=== PATIENT | female | born 1980 | race Caucasian/White ===

== ENCOUNTER 2016-11-19 21:02 | Emergency (ER) | payer BC ==
[~2016-11-19] VITALS: Ht 162.6 cm; Wt 59.4 kg
[~2016-11-19 21:02] MED LIST: ALLEGRA ALLERG180 MG PO; LEXAPRO10 MG PO; NEXIUM40 MG PO; NORCO 5/3251 TABLET PO; ORTHO TRI-CY1 TABLE1 PO; SINGULAIR10 MG PO
[2016-11-19] MEDS ORDERED: RANITIDINE HCL150 MG PO (22:01)
[2016-11-19] MEDS ORDERED: PROAIR HFA8.5 GM IH (22:02)
[2016-11-19] MEDS ORDERED: BENADRYL25 MG PO (23:10)
[2016-11-19] MEDS ORDERED: PEPCID20 MG PO (23:10)
[2016-11-19 23:30] VITALS: BP 136/62
== END 2016-11-19 23:33 | disposition home or self-care (01) ==
LOC: EME 21:02
DX: T78.40XA Allergy, unspecified, initial encounter (principal); R22.0 Localized swelling, mass and lump, head; L50.9 Urticaria, unspecified; J45.909 Unspecified asthma, uncomplicated; K21.9 Gastro-esophageal reflux disease without esophagitis
CPT/HCPCS: 99281; 99285; J1100